=== PATIENT | female | born 1970 | race Caucasian/White ===

== ENCOUNTER 2018-09-07 06:30 | Day surgery (SDC) | payer BC ==
[~2018-09-07] VITALS: Ht 162.6 cm; Wt 84.9 kg
[2018-09-07] VITALS (9 sets, daily range): BP systolic 109–142; BP diastolic 57–77; PULSE 68–90; RESP 16–18; Ht 162.6 cm; Wt 84.9 kg
--- NOTE | 2018-09-07 07:46 | HPN ---
Date/Time of Note Date/Time of Note DATE: 09/07/18 TIME: 07:45 Interval H&P Admission Note Pt. seen H&P reviewed: No system changes MAGNUS ALICEA Sep 07, 2018 07:46
[2018-09-07] MEDS ORDERED: CEFAZOLIN 2 GM/50 ML (PMX) 50 ML IVPB SCH (07:51)
[2018-09-07] MEDS ORDERED: LACTATED RINGER'S 1,000 ML (ENTER RATE) IV SCH (07:52)
--- NOTE | 2018-09-07 09:58 | PREAC ---
Date/Time of Note Date/Time of Note DATE: 09/07/18 TIME: 09:56 Anesthesia Eval and Record Evaluation Time Pre-Procedure Interview DATE: 09/07/18 TIME: 09:56 Age 48 Sex female NPO: 8 hrs Preoperative diagnosis right ring finger nail deformity Planned procedure removal right ring finger nail plate, excision of deep finger mass Past Medical History Past Medical History: Includes Cardio: HTN Pulm: Sleep Apnea GI: Obesity Surgery & Anesthesia Issues No known issue Meds Anticoagulation: No Beta Brea within 24 hr: No Reason Beta Brea not given: Pt. not on B-Brea No Active Prescriptions or Reported Meds Current Medications Cefazolin Sodium/ Dextrose 50 ml @ 100 mls/hr ONCE IVPB ; Start 09/07/18 at 07:51; Stop 09/07/18 at 12:00 Lactated Ringer's 1,000 ml @ 21 mls/hr Q24H IV Last administered on 09/07/18at 07:55; Admin Dose 21 MLS/HR; Start 09/07/18 at 07:52 Meds reviewed: Yes Allergies Coded Allergies: No Known Allergy (Unverified , 09/07/18) Allergies Reviewed: Yes Labs/Studies Labs Reviewed: Reviewed by anesthesiologist test: Negative Studies: ECG, CXR Pre-procedure Exam Last vitals Vital Signs Date Temp Pulse Resp B/P (MAP) Pulse Ox O2 O2 Flow FiO2 Time Delivery Rate 09/07/18 97.8 77 16 142/73 99 Room Air 07:30 (96) Airway: Adequate mouth opening, Adequate thyromental dist Mallampati: Mallampati II Teeth: Normal Lung: Normal Heart: Normal ASA Physical Status ASA physical status: 2 Emergency: None Planned Anesthetic General/MAC: MAC Planned Pain Management Parenteral pain med Pre-operative Attestations Prior to commencing anesthesia and surgery, the patient was re-evaluated, there was verification of: *The patient's identity *The results of appropriate recent lab work and preoperative vital signs *The above evaluation not changing prior to induction *Anesthetic plan, risk benefits, alternative and complications discussed with patient/family; questions answered; patient/family understands, accepts and wishes to proceed. JESSIE HOBSON Sep 07, 2018 09:58
[2018-09-07] MEDS ORDERED: PROPOFOL 100 ML ONE (10:03)
[2018-09-07] MEDS ORDERED: LIDOCAINE 2% (SDV) 5 ML INJ ONE (10:09)
[2018-09-07] MEDS ORDERED: BUPIVACAINE 0.5% (SDV) 30 ML INJ ONE (10:09)
[2018-09-07] MEDS ORDERED: CEFAZOLIN 1 GM INJ ONE (10:10)
--- NOTE | 2018-09-07 10:40 | OPPN ---
Date/Time of Note Date/Time of Note DATE: 09/07/18 TIME: 10:39 Operative Report Preoperative Diagnosis Right ring finger deep mass Postoperative Diagnosis Right ring finger deep mass Operation/Procedure Performed Right ring finger deep mass excision Removal of right ring finger nail plate Surgeon see signature line psych assistant none Anesthesia: MAC Estimated blood loss: 0 - 10 ml's Transfusion Required none Specimen right ring finger mass Grafts/Implants none Complications none MAGNUS ALICEA Sep 07, 2018 10:40
--- NOTE | 2018-09-07 10:57 | PAC ---
Date/Time of Note Date/Time of Note DATE: 09/07/18 TIME: 10:57 Post-Anesthesia Notes Post-Anesthesia Note Last documented vital signs Vital Signs Date Temp Pulse Resp B/P (MAP) Pulse Ox O2 O2 Flow FiO2 Time Delivery Rate 09/07/18 98.1 75 17 109/61 97 Room Air 10:54 (77) 09/07/18 98.0 10:38 Activity: WNL Respiratory function: WNL Cardiovascular function: WNL Mental status: Baseline Pain reasonably controlled: Yes Hydration appropriate: Yes Nausea/Vomiting absent: Yes JESSIE HOBSON Sep 07, 2018 10:57
[2018-09-07] MEDS ORDERED: DIPHENHYDRAMINE 50 MG INJ IV PRN (11:00)
[2018-09-07] MEDS ORDERED: KETOROLAC 30 MG INJ IV PRN (11:00)
[2018-09-07] MEDS ORDERED: LABETALOL HCL 20MG INJ IV PRN (11:00)
[2018-09-07] MEDS ORDERED: hydrALAzine 20 MG INJ IV PRN (11:00)
[2018-09-07] MEDS ORDERED: MEPERIDINE 25 MG INJ IV PRN (11:00)
[2018-09-07] MEDS ORDERED: METOCLOPRAMIDE 10 MG INJ IV PRN (11:00)
[2018-09-07] MEDS ORDERED: EPHEDrine 25 MG/5 ML SYG IV PRN (11:00)
[2018-09-07] MEDS ORDERED: OXYCODONE/ACETAMINOPHEN (5/325) TAB PO PRN ×2 (11:00)
[2018-09-07] MEDS ORDERED: FENTAnyl 50 MCG/ML VIAL IV PRN ×3 (11:00)
[2018-09-07] MEDS ORDERED: ONDANSETRON 4 MG INJ IV PRN (11:00)
[2018-09-07] MEDS ORDERED: ALBUTEROL 0.083% (NEB) 2.5 MG/3 ML AMP HHN PRN (11:00)
--- NOTE | 2018-09-07 12:17 | OPR ---
DATE OF OPERATION: 09/07/2018 SURGEON: Magnus Ramirez MD ANESTHESIA: Local MAC. PREOPERATIVE DIAGNOSES: 1. Right ring finger deep mass. 2. Right ring finger nail plate deformity and abnormality. POSTOPERATIVE DIAGNOSES: 1. Right ring finger deep mass. 2. Right ring finger nail plate deformity and abnormality. PROCEDURE: 1. Excision of the deep mass right ring finger measuring 1 cm x 8 mm. 2. Removal of right ring finger nail plate. OPERATIVE FINDINGS: Right ring finger nail plate abnormality and deformity with deep mass at the alesia l bed. INDICATION FOR PROCEDURE: A 48-year-old female with longstanding right ring finger pain who failed c onservative measures, would like to proceed with surgical intervention, understanding the risks and b enefits. DESCRIPTION OF PROCEDURE: The patient was seen in the preoperative area and all further questions we re answered. Again, she gave informed consent, understanding the risks and benefits. She was taken to operative suite, placed in supine position. Sedation was administered as was Ancef 2 grams IV. T ourniquet placed in the right upper extremity and right upper extremity was prepped with ChloraPrep s tick and draped in usual sterile fashion. Esmarch bandage was used to exsanguinate the extremity and tourniquet inflated to 250 mmHg. Attention was first turned to removing the nail plate. A [place] el evator was used to elevate the nail plate off of the nail bed. There was significant deformity as we ll as adhesions between the nail plate and the nail bed. The nail plate was also freed up from the s urrounding perionychium. After freeing up the nail plate, it was removed using a needle straight truck driver. The nail bed was inspected, which was irregular, especially proximally where there was elevation of the nail bed and apparent deep mass. Small incisions were made on the radial and ulnar aspects of the pr oximal nail fold and the mass was better visualized. The nail bed was incised along its midline and was elevated radially and ulnarly. The mass was visualized deep to the nail bed and was completely e xcised down to the level of the bone where there was scalloping of the bone due to the mass effect. The mass was sent for specimen. Wound was copiously irrigated and the nail bed was repaired using 6- 0 Vicryl. The nail plate was also placed back into the proximal nail fold and secured using a 5-0 ny chris suture. Xeroform placed, followed by sterile gauze, Webril, and a Coban dressing. Tourniquet de flated after 16 minutes. The patient was awakened from anesthesia. She was taken to post-operative suite in stable condition, tolerated procedure well without complication. SPECIMENS: Right ring finger mass. ESTIMATED BLOOD LOSS: 5 mL. COUNTS: Sponge, instrument, needle counts correct. TOURNIQUET TIME: 16 minutes. CONDITION ON DISCHARGE: Stable. The patient was given a nonrefillable 5-day prescription of pain medication for surgery today. Dictated By: MAGNUS NEWELL/JOE Conf#: [id number] DID#: [id number]
== END 2018-09-07 11:58 | disposition home or self-care (01) ==
LOC: SDS 06:30
PROVIDERS: ATTEND Orthopaedic Surgery Hand Surgery
DX: R22.31 Localized swelling, mass and lump, right upper limb (principal); M20.091 Other deformity of right finger(s); E66.9 Obesity, unspecified; Z68.32 Body mass index [BMI] 32.0-32.9, adult; G47.33 Obstructive sleep apnea (adult) (pediatric)
CPT/HCPCS: 11730; 26115; 84703; 88307; J0690; Z7512; Z7610